=== PATIENT | female | born 1980 | race Two or more races ===

== ENCOUNTER 2022-07-05 17:56 | Emergency (ER) | payer MEDICAID ==
[~2022-07-05] VITALS: Ht 175.3 cm; Wt 64.5 kg
[2022-07-05 18:43] VITALS: BP 109/78
[2022-07-05 19:11] LABS: Urine Bacteria FEW /hpf (None Seen); Urine Blood Negative /uL (Negative); Urine Mucus FEW (None Seen); Urine Specific Gravity 1.029 (1.001-1.035); Urine WBC 17 /hpf (0 - 5)
== END 2022-07-05 19:37 | disposition left against medical advice (07) ==
LOC: ER 17:56
DX: S90.562A Insect bite (nonvenomous), left ankle, initial encounter (principal); Z53.21 Procedure and treatment not carried out due to patient leaving prior to being seen by health care provider; W57.XXXA Bitten or stung by nonvenomous insect and other nonvenomous arthropods, initial encounter; Y93.89 Activity, other specified; Y92.89 Other specified places as the place of occurrence of the external cause; Y99.8 Other external cause status
CPT/HCPCS: 81001; 81025